=== PATIENT | female | born 1995 | race Caucasian/White ===

== ENCOUNTER 2017-01-22 20:01 | Emergency (ER) | payer OTHER ==
[~2017-01-22] VITALS: Ht 172.7 cm; Wt 76.2 kg
[2017-01-22] MEDS ORDERED: FOLIC ACID1 MG ORAL (20:12)
[2017-01-22] MEDS ORDERED: MACROBID100 MG ORAL (20:12)
[2017-01-22] MEDS ORDERED: CHLORDIAZEPOXID25 MG PO ×2 (20:12→22:23)
[2017-01-22] MEDS ORDERED: MULTIVITAMINS1 EAC2 ORAL (20:12)
[2017-01-22] MEDS ORDERED: ZOFRAN ODT4 MG ORAL (20:12)
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
[2017-01-22 20:53] LABS: BASOPHILS % (AUTO) 1.5 % (0.0-2.0); EOSINOPHILS % (AUTO) 1.2 % (0.0-3.0); MEAN CORPUSCULAR HEMOGLOBIN 31.2 PG (27.0-31.0); MEAN CORPUSCULAR HGB CONC 32.8 G/DL (32.0-36.0); MEAN CORPUSCULAR VOLUME 95 FL (80-99); MEAN PLATELET VOLUME 5.8 FL (6.5-10.1); MONOCYTES % (AUTO) 7.1 % (1.0-10.0); NEUTROPHILS % (AUTO) 31.1 % (45.0-75.0); PLATELET COUNT 258 K/UL (150-450); RED BLOOD COUNT 4.53 M/UL (4.20-5.40); RED CELL DISTRIBUTION WIDTH 14.5 % (11.6-14.8); WHITE BLOOD COUNT 7.4 K/UL (4.8-10.8)
[2017-01-22 20:57] LABS: APPEARANCE,URINE CLEAR; KETONES,URINE NEGATIVE (NEGATIVE); LEUKOCYTE ESTERASE ,URINE NEGATIVE (NEGATIVE); NITRITE,URINE NEGATIVE (NEGATIVE); PH,URINE 5 (4.5-8.0); PROTEIN,URINE NEGATIVE (NEGATIVE); UROBILINOGEN,URINE NORMAL MG/DL (0.0-1.0)
[2017-01-22 21:06] LABS: RBC,URINE 0-2 /HPF (0 - 2); WBC,URINE 0-2 /HPF (0 - 2)
[2017-01-22 21:07] LABS: BACTERIA,URINE OCCASIONAL /HPF
[2017-01-22 21:15] LABS: ACETAMINOPHEN < 10 ug/mL (10-30); ALANINE AMINOTRANSFERASE 20 U/L (3-33); ALBUMIN/GLOBULIN RATIO 1.4 (1.0-2.7); ALCOHOL 413 mg/dL; ANION GAP 15 (5-15); ASPARTATE AMINO TRANSFERASE 32 U/L (5-40); CALCIUM 9.5 mg/dL (8.6-10.2); CARBON DIOXIDE 28 mEQ/L (20-30); CHLORIDE 102 mEQ/L (98-107); CREATININE 0.8 mg/dL (0.5-0.9); GLOMERULAR FILTRATION RATE > 60 mL/min (>60); HEMOLYSIS 5; POTASSIUM 4.2 mEQ/L (3.4-4.9); SODIUM 145 mEQ/L (135-145); TOTAL PROTEIN 8.2 g/dL (6.6-8.7); VALPROIC ACID < 3 ug/mL (50-100)
[2017-01-22 21:24] LABS: CKMB < 1.5 ng/mL (< 3.8)
[2017-01-22] MEDS ORDERED: LORazepam 0.5mg tab ORAL ONE (21:45)
[2017-01-22 21:50] VITALS: BP 120/86
[2017-01-22] MEDS ORDERED: chlordiazePOXIDE 25mg Cap ORAL ONE (22:30)
[2017-01-22 22:51] VITALS: BP 122/86
[2017-01-22 22:52] VITALS: BP 122/86
[2017-01-22] MEDS ORDERED: LORazepam Inj 2mg/ml 1ml IV PRN (23:00)
[2017-01-22] MEDS ORDERED: Morphine Sulfate 2mg/ml Inj IVP PRN (23:00)
[2017-01-22] MEDS ORDERED: chlordiazePOXIDE 25mg Cap ORAL PRN (23:00)
[2017-01-22] MEDS ORDERED: Miralax 17gm pkt ORAL PRN (23:00)
[2017-01-22] MEDS ORDERED: Mylanta II UD 30ml ORAL PRN (23:00)
[2017-01-22] MEDS ORDERED: Thiamine HCl 100 MG, Folic Acid 1 MG, Magnesium Sulfate 2,000 MG, Multivitamin - 12 Inj... IV SCH ×5 (23:00)
[2017-01-22] MEDS ORDERED: Zolpidem 5mg tab ORAL PRN (23:00)
[2017-01-23] MEDS ORDERED: Heparin 5000 units/ml inj SUBQ SCH (09:00)
--- NOTE | 2017-01-25 18:44 | Cardiology Report ---
APPROVED REPORT EKG Measurement Heart [id number] Normal sinus rhythm Normal ECG
== END 2017-01-22 22:53 | disposition left against medical advice (07) ==
LOC: EDBD 20:01 → EMR 20:30
DX: F10.239 Alcohol dependence with withdrawal, unspecified (principal); R56.9 Unspecified convulsions; Z88.0 Allergy status to penicillin
CPT/HCPCS: 36415; 80053; 80164; 80185; 80300; 81003; 81025; 82553; 85025; 93005; 99285; G0480; 80329